=== PATIENT | female | born 1950 | race Caucasian/White ===

== ENCOUNTER 2017-02-13 04:12 | Inpatient (IN) | payer OTHER, BC ==
[~2017-02-13] VITALS: Ht 167.6 cm; Wt 91.2 kg
[2017-02-13] VITALS (8 sets, daily range): BP systolic 95–145; BP diastolic 56–84
--- NOTE | ~2017-02-13 | HC ---
[facility] [place] [address] CONSULTATION Name: EBONY GAMBOA Room #: 460-P [facility] IN ..#: [id number] Admission: 02/13/17 Attend Phys: Shanna Dozier MD Discharge: 02/16/17 Date of : 48 Report #: [id number] THIS REPORT FOR: //name// CC: Shanna Gaviria REASON FOR CONSULTATION: Exacerbation of COPD. IMPRESSION: 1. Exacerbation of chronic obstructive pulmonary disease. 2. Hypercapnic respiratory failure. 3. Cardiomyopathy. 4. Hypertension. 5. Leukocytosis. 6. Lactic acidosis. 7. Hyperglycemia. 8. History of tobacco use. 9. Metabolic acidosis, feeling better this evening. We will follow closely with you. PLAN: Agree with current therapy. We will do a CT PE protocol. We will do a BiPAP at night. Agree with corticosteroids and will place on Ceftin, Mucinex, CT PE protocol. We may ask cardiology also to evaluate. HISTORY: A very pleasant 66-year-old female who was on her home O2; however, last night developed increasing shortness of breath. No definite chest pain, does not recall being brought in. No sputum production. No fever, chills or night sweats. She has been off of prednisone since about December. No fever, chills, diarrhea. Positive vomiting in emergency room. HOME MEDICATIONS: Include aspirin, Coreg, Lasix, atorvastatin, lisinopril, Spiriva, Brovana, budesonide. PAST SURGICAL HISTORY: Include toenail removal and tubal ligation. ALLERGIES: None known. FAMILY HISTORY: Rheumatic fever, stomach cancer, PA. SOCIAL HISTORY: Positive tobacco, quit in June 2016. Negative ETOH. REVIEW OF SYSTEMS: Positive for hypertension, COPD, right common carotid stenosis. No fever, chills or night sweats. No nausea or vomiting. No hemoptysis, hematemesis or hematuria. No chest pain, no blurred vision. PHYSICAL EXAMINATION: VITAL SIGNS: Temperature 97.9, pulse 93, respirations 15 and BP 141/79. [facility] [address] [place] [address] CONSULTATION Name: EBONY GAMBOA Karol Room #: 460-[facility] IN ..#: [id number] Admission: 02/13/17 Attend Phys: Shanna Dozier MD Discharge: 02/16/17 Date of : 48 Report #: [id number] EYES: Negative icterus. NECK: Negative JVD. LUNGS: Showed wheeze bilateral. HEART: Regular. ABDOMEN: Bowel sounds present. EXTREMITIES: Showed no calf tenderness. LABORATORY DATA: Chest x-ray, no acute. Troponin less than 0.04. BUN 12, creatinine 1.2. GFR 45, pH 7.27, pCO2 of 39, pO2 is 77, bicarbonate 17.5, lactate 55. White count 13, hemoglobin 14.4, platelets 277. <ELECTRONICALLY SIGNED> By: Isabella Ayala MD 02/18/17 0535 31 14 Isabella Ayala MD /maryann
--- NOTE | ~2017-02-13 | EKG ---
[address] [employer] [place] [address] ELECTROCARDIOGRAM REPORT Name: EBONY GAMBOA Room #: 460-P ADM IN M.R.#: [id number] Admission: 02/13/17 Attend Phys: Shanna Dozier MD Discharge: Date of : 48 Report #: [id number] THIS REPORT FOR: //name// [facility] ED Test Date: 2017-02-13 Test Time: 04:19:03 Pat Name: EBONY GAMBOA Department: Room: 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 Cutting Supervisor: OUMAR : 1950 Requested By: Katie Cardona Order Number: [id number] MD: Lauri Webber Measurements Intervals [place] Rate: 120 P: 77 HI: 142 QRS: 30 QRSD: 94 T: QT: 313 QTc: 443 Interpretive Statements Sinus tachycardia Low voltage, precordial leads Borderline T abnormalities, lateral leads Compared to ECG 05/22/2007 21:49:19 Low QRS voltage now present T-wave abnormality now present Electronically Signed On 02-13-2017 7:59:56 CDT by Lauri Webber [email or web address] <ELECTRONICALLY SIGNED> By: Lauri Webber MD, [facility] 02/13/17 0759 0419 0419 Lauri Webber MD, [facility] /EPI
--- NOTE | ~2017-02-13 | EKG ---
[place] [address] [facility] [place] [address] ELECTROCARDIOGRAM REPORT Name: EBONY GAMBOA Room #: 460-P ADM IN M.R.#: [id number] Admission: 02/13/17 Attend Phys: Shanna Dozier MD Discharge: Date of : 48 Report #: [id number] THIS REPORT FOR: //name// [facility] Test Date: 2017-02-14 Test Time: 09:54:09 Pat Name: EBONY GAMBOA Department: Room: 460 Gender: F Manager Critical Care Unit: Armando GABRIEL : 1950 Requested By: Isabella Ayala Order Number: [id number] MD: Lauri Webber Measurements Intervals [place] Rate: 78 P: 74 [place]: 144 QRS: 50 QRSD: 105 T: 228 QT: 450 QTc: 513 Interpretive Statements Sinus rhythm Repol abnrm, global ischemia, diffuse leads Prolonged QT interval Compared to ECG 02/13/2017 04:19:03 ST and T-wave abnormality is now present QT interval has lengthened Electronically Signed On 02-15-2017 11:24:36 CDT by Lauri Webber [email or web address] <ELECTRONICALLY SIGNED> By: Lauri Webber MD, FACC 02/15/17 1124 0954 0954 Lauri Webber MD, [facility] /EPI
[~2017-02-13 04:12] MED LIST: ALBUTEROL2.5 MG/0.5 INH; AMLODIPINE BESY10 MG PO; ASPIR 8181 MG PO; BROVANA15 MCG/2 M INH; CARVEDILOL3.125 MG PO; FLEXERIL PO; LASIX 40 MG TAB40 M1 PO; LIPITOR 20 MG T20 M1 PO; LISINOPRIL10 MG PO; MUCINEX TA600 MG/TA2 PO; NORCO 5-325 TA1 EACH PO; NYSTATIN 1100000 U/M SW&SWALLOW; PREDNISONE 20 M20 MG PO; PULMICORT0.5 MG/22 INH; SPIRIVA INH; SYMBICORT160 MCG/4. INH; ZOCOR 10 MG TAB10 MG PO
[2017-02-13 04:26] LABS: ABSOLUTE NEUTROPHILS 6.3 thou/uL (1.4-8.2); BASOPHILS 1.1 % (0.0-2.0); EOSINOPHILS 2.6 % (0.0-3.0); HEMOGLOBIN 14.4 gm/dL (12.0-15.0); LYMPHOCYTES 41.7 % (24.0-44.0); MCHC 32.7 g/dL (28.0-37.0); MCV 97.9 fL (80.0-100.0); MONOCYTES 6.1 % (1.0-8.0); PLATELET COUNT 277 thou/uL (150-400); POLYS 48.5 % (36.0-66.0); RBC 4.49 mil/uL (4.20-5.00); RDW 14.3 % (10.5-14.5)
[2017-02-13 04:31] LABS: CALCIUM 8.5 mg/dL (8.5-10.1); CREATININE 1.2 mg/dL (0.6-1.0); POTASSIUM 4.7 mmol/L (3.5-5.1)
[2017-02-13 04:39] LABS: MANUAL DIFF NO
[2017-02-13 04:49] LABS: ABG SAMPLE TYPE ARTERIAL; BE(vivo) -8.8 mmol/L (-2 to +3); HCO3 17.5 mmol/L (22.0-26.0); O2(CT) 18.8 mL/dL (15.0-23.0); O2Hb 89.5 % (92.0-98.0); PCO2 38.8 mmHg (35.0-45.0); PO2 77.1 mmHg (80.0-100.0); sO2 93.8 % (92.0-98.0); tCO2 18.6 mmol/L (24.0-30.0)
[2017-02-13 04:50] LABS: STICK SITE L.RADIAL; pH 7.271 (7.360-7.450)
[2017-02-14 06:00] LABS: HEMATOCRIT 41.3 % (37.0-47.0); HEMOGLOBIN 13.8 gm/dL (12.0-15.0); MCH 31.7 pg (26.0-34.0); MCHC 33.3 g/dL (28.0-37.0); MCV 95.3 fL (80.0-100.0); RBC 4.34 mil/uL (4.20-5.00); RDW 14.2 % (10.5-14.5); WBC 16.2 thou/uL (4.0-11.0)
[2017-02-14 06:01] VITALS: BP 142/83
[2017-02-14 06:11] LABS: ALBUMIN 3.3 g/dL (3.4-5.0); CREATININE 0.7 mg/dL (0.6-1.0); POTASSIUM 4.6 mmol/L (3.5-5.1); TOTAL BILIRUBIN 0.3 mg/dL (<0.1-1.0); TOTAL PROTEIN 7.2 g/dL (6.4-8.2)
[2017-02-14 07:55] VITALS: BP 116/65
[2017-02-14 11:27] VITALS: BP 139/69
[2017-02-14 15:51] VITALS: BP 142/74
[2017-02-14 19:51] VITALS: BP 151/84
[2017-02-15 03:33] VITALS: BP 125/62
[2017-02-15 05:05] LABS: HEMATOCRIT 40.1 % (37.0-47.0); HEMOGLOBIN 13.4 gm/dL (12.0-15.0); MCH 31.8 pg (26.0-34.0); MCHC 33.3 g/dL (28.0-37.0); MCV 95.3 fL (80.0-100.0); RBC 4.21 mil/uL (4.20-5.00); RDW 14.1 % (10.5-14.5); WBC 13.6 thou/uL (4.0-11.0)
[2017-02-15 05:27] LABS: CREATININE 0.7 mg/dL (0.6-1.0); POTASSIUM 4.4 mmol/L (3.5-5.1)
[2017-02-15 08:01] VITALS: BP 121/68
[2017-02-15 08:19] LABS: ABG SAMPLE TYPE ARTERIAL; BE(vivo) 4.4 mmol/L (-2 to +3); HCO3 29.5 mmol/L (22.0-26.0); LACTATE 1.62 mmol/L (0.5-2.0); O2(CT) 19.9 mL/dL (15.0-23.0); O2Hb 94.4 % (92.0-98.0); PCO2 45.7 mmHg (35.0-45.0); PO2 76.7 mmHg (80.0-100.0); STICK SITE L.BRACHIAL; pH 7.428 (7.360-7.450); sO2 95.6 % (92.0-98.0); tCO2 30.9 mmol/L (24.0-30.0)
[2017-02-15 12:31] VITALS: BP 159/87
[2017-02-15 17:28] VITALS: BP 133/64
[2017-02-15 20:42] VITALS: BP 147/75
[2017-02-16 05:20] VITALS: BP 147/57
[2017-02-16 07:47] VITALS: BP 125/72
[2017-02-16 11:19] VITALS: BP 110/70
[2017-02-16 13:56] VITALS: BP 110/70
== END 2017-02-16 14:47 | disposition home or self-care (01) | DRG 280 ==
LOC: ER 04:12 → 4W 05:11 → EROBS 05:11 → 4W 06:00
PROVIDERS: Emergency Medicine; Family Medicine; Internal Medicine Pulmonary Disease
PROC: 5A09357 Assistance with Respiratory Ventilation, Less than 24 Consecutive Hours, Continuous Positive Airway Pressure (ICD-10-PCS; principal; 2017-02-14)
DX: I21.4 Non-ST elevation (NSTEMI) myocardial infarction (principal); J96.21 Acute and chronic respiratory failure with hypoxia; N17.0 Acute kidney failure with tubular necrosis; J44.1 Chronic obstructive pulmonary disease with (acute) exacerbation; I42.0 Dilated cardiomyopathy; E87.2 Acidosis; I10 Essential (primary) hypertension; E78.5 Hyperlipidemia, unspecified; I25.10 Atherosclerotic heart disease of native coronary artery without angina pectoris; E78.00 Pure hypercholesterolemia, unspecified; F17.210 Nicotine dependence, cigarettes, uncomplicated; R73.9 Hyperglycemia, unspecified; Z98.51 Tubal ligation status; Z79.82 Long term (current) use of aspirin; Z79.899 Other long term (current) drug therapy; Z82.49 Family history of ischemic heart disease and other diseases of the circulatory system; Z80.0 Family history of malignant neoplasm of digestive organs; Z83.6 Family history of other diseases of the respiratory system; Z99.81 Dependence on supplemental oxygen
CPT/HCPCS: 10045

== ENCOUNTER 2017-03-09 10:00 | Emergency (ER) | payer OTHER, BC ==
[~2017-03-09] VITALS: Ht 167.6 cm; Wt 92.1 kg
--- NOTE | ~2017-03-09 | EKG ---
[place] [address] [facility] [place] [address] ELECTROCARDIOGRAM REPORT Name: EBONY GAMBOA Room #: [facility]#: [id number] Admission: 03/09/17 Attend Phys: Discharge: 03/09/17 Date of : 48 Report #: [id number] THIS REPORT FOR: //name// [facility] ED Test Date: 2017-03-09 Test Time: 10:25:56 Pat Name: EBONY GAMBOA Department: Room: Gender: F Gambreler Helper: Karol STEELE : 1950 Requested By: Morales Arthur Order Number: [id number] MD: Lauri Webber Measurements Intervals [place] Rate: 102 P: 67 ND: 148 QRS: -43 QRSD: 120 T: 115 QT: 389 QTc: 507 Interpretive Statements Sinus tachycardia Incomplete left bundle branch block Compared to ECG 02/14/2017 09:54:09 Left bundle-branch block now present Marked ST and T wave abnormality no longer present incomplete left bundle branch block now present Electronically Signed On 03-09-2017 16:03:53 CDT by Lauri Webber [email or web address] <ELECTRONICALLY SIGNED> By: Lauri Webber MD, [facility] 03/09/17 1603 1025 1025 Lauri Webber MD, [facility] /EPI
[2017-03-09 10:17] LABS: ABSOLUTE NEUTROPHILS 5.3 thou/uL (1.4-8.2); BASOPHILS 1.1 % (0.0-2.0); EOSINOPHILS 2.9 % (0.0-3.0); HEMATOCRIT 41.9 % (37.0-47.0); HEMOGLOBIN 13.8 gm/dL (12.0-15.0); LYMPHOCYTES 41.4 % (24.0-44.0); MCH 31.9 pg (26.0-34.0); MCHC 32.9 g/dL (28.0-37.0); MONOCYTES 4.2 % (1.0-8.0); PLATELET COUNT 224 thou/uL (150-400); POLYS 50.4 % (36.0-66.0); RBC 4.32 mil/uL (4.20-5.00); RDW 14.7 % (10.5-14.5); WBC 10.5 thou/uL (4.0-11.0)
[2017-03-09 10:19] LABS: MANUAL DIFF NO
[2017-03-09 10:30] LABS: ABG SAMPLE TYPE ARTERIAL; BE(vivo) -2.4 mmol/L (-2 to +3); LACTATE 1.85 mmol/L (0.5-2.0); O2Hb 93.4 % (92.0-98.0); PCO2 36.8 mmHg (35.0-45.0); PO2 94.1 mmHg (80.0-100.0); pH 7.394 (7.360-7.450); sO2 97.2 % (92.0-98.0); tCO2 23.1 mmol/L (24.0-30.0)
[2017-03-09 10:31] LABS: STICK SITE L.BRACHIAL
[2017-03-09 10:33] LABS: ANION GAP 10 mmol/L (7-16); BUN 16 mg/dL (7-18); CALCIUM 8.5 mg/dL (8.5-10.1); CHLORIDE 108 mmol/L (98-107); CO2 24 mmol/L (21-32); CREATININE 0.9 mg/dL (0.6-1.0); GLUCOSE 136 mg/dL (74-106); POTASSIUM 4.1 mmol/L (3.5-5.1); SODIUM 142 mmol/L (136-145)
[2017-03-09 10:46] LABS: NT-PRO BRAIN NAT PEPTIDE 158 pg/mL (<300); TROPONIN-I < 0.04 ng/mL (<0.04-0.07)
[2017-03-09] MEDS ORDERED: DOXYCYCLINE 10100 MG PO (11:25)
== END 2017-03-09 11:59 | disposition home or self-care (01) ==
LOC: ER 10:00
PROVIDERS: Nurse Practitioner
DX: J44.1 Chronic obstructive pulmonary disease with (acute) exacerbation (principal); I10 Essential (primary) hypertension; E78.00 Pure hypercholesterolemia, unspecified; F17.210 Nicotine dependence, cigarettes, uncomplicated

== ENCOUNTER 2017-03-10 09:08 | Inpatient (IN) | payer OTHER, BC ==
[~2017-03-10] VITALS: Ht 167.6 cm; Wt 93.0 kg
--- NOTE | ~2017-03-10 | EKG ---
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: MZOOK : 1950 Requested By: Morales Arthur Order Number: [id number] MD: Asad Pathak Measurements Intervals [place] Rate: 102 P: 77 VT: 152 QRS: 35 QRSD: 91 T: 123 QT: 363 QTc: 473 Interpretive Statements Sinus tachycardia Abnormal T, consider ischemia, lateral leads Compared to ECG 03/09/2017 10:25:56 T-wave abnormality now present Possible ischemia now present Left bundle-branch block no longer present Electronically Signed On 03-10-2017 17:59:32 CDT by Asad Pathak [email or web address] <ELECTRONICALLY SIGNED> By: Asad Pathak MD 03/10/17 1759 5 5 Asad Pathak MD /EPI
--- NOTE | ~2017-03-10 | HC ---
[facility] [place] [address] CONSULTATION Name: EBONY GAMBOA Room #: 211-P [facility] IN .R.#: [id number] Admission: 03/10/17 Attend Phys: Isreal Carvajal MD Discharge: Date of : 48 Report #: [id number] THIS REPORT FOR: //name// CC: Solo Carvajal PRIMARY CARE PHYSICIAN: Dr. Solo Gaviria. REFERRAL PHYSICIAN: Dr. Isreal Carvajal. REASON FOR REFERRAL: Dyspnea. HISTORY OF PRESENT ILLNESS: The patient is a 66-year-old white female with COPD, who presents once again to the Emergency Room with progressive dyspnea. A pulmonary consultation was requested. The patient has known COPD. She smoked more than 35 years, quit less than a year ago. She has been doing fairly well except about 7 years ago when she was exposed to mold and possible paint fumes when she was treated for exacerbation of COPD. Other than she has been doing fairly well until June of this year along with January and this current admission. She was just hospitalized past month. She went home and was doing fairly well until 2 days ago she started to develop increasing dyspnea. She had a minimally productive cough with clear sputum. She was in fact seen in the Emergency Room yesterday. She was evaluated and given doxycycline along with prednisone. She returns today with worsening dyspnea. Otherwise, denies any recent febrile illness, chest pain, productive cough, nausea, vomiting. She does not know if there is now mold again in the house. She denies any recent flooding, which occurred 7 years ago. She denies any recent changes in home or lifestyle changes. She denies any recent acquisition. Chest x-ray on admission revealed clear lung posey, it is hyperexpanded. Troponin is mildly elevated with T-wave abnormalities on this admission. PAST MEDICAL HISTORY: Remarkable for COPD, long history of tobacco use of more than 35 years, quit about a year ago. Hypertension, hyperlipidemia, cardiomyopathy, ejection fraction approximately 40-45%. Echocardiogram performed earlier today showed mild mitral regurgitation, pulmonary artery pressure was not able to be mentioned. Systolic function is reduced. Cause of this cardiomyopathy is yet to be defined. [facility] [address] [place] [address] CONSULTATION Name: EBONY GAMBOA Room #: 211-P [facility] IN ..#: [id number] Admission: 03/10/17 Attend Phys: Isreal Carvajal MD Discharge: Date of : 48 Report #: [id number] ALLERGIES: None noted. HOME MEDICATIONS: Include aspirin, Pulmicort nebulized 0.5 mg b.i.d., DuoNeb p.r.n., Spiriva 1 capsule once a day, Lasix, Zestril, Coreg, Lipitor and recent pulse prednisone therapy along with doxycycline. FAMILY HISTORY: Notable for father due to motor vehicle accident. Mother at the age of 51 with rheumatic fever. One brother with COPD. SOCIAL HISTORY: She is . Tobacco history as mentioned above. She drinks socially. REVIEW OF SYSTEMS: As mentioned above, otherwise 10-point system review negative. PHYSICAL EXAMINATION: GENERAL: She is awake, alert, who appears to be mildly distressed with mild dyspnea. VITAL SIGNS: Temperature is 98.4 degrees Fahrenheit, pulse is 83, respiratory rate is 15, blood pressure is 127/62 mmHg, saturation 95%. HEENT: Normocephalic, atraumatic. NECK: Supple, without any lymphadenopathy or thyromegaly. CHEST: Breath sounds are decreased bilaterally with mild expiratory wheezes. CARDIOVASCULAR: Normal S1, S2. No murmurs or gallop. There is no JVD. There is no carotid bruit. Pulses are 2+/4+ bilaterally. ABDOMEN: Soft, nontender, no organomegaly or masses felt. GENITOURINARY: Deferred. RECTAL: Deferred. EXTREMITIES: There is no edema, cyanosis or clubbing. LABORATORY DATA: Chest x-ray as mentioned above. Troponin 0.16. Arterial blood gas revealed pH 7.40, pCO2 of 37, pO2 79 on 3 liters of O2. WBC is 20,600, hemoglobin is 14.6 without bandemia. Eosinophil count is normal. Electrolytes are normal. IMPRESSION: 1. Acute hypoxemic respiratory failure in this 66-year-old white female. Etiology is secondary to exacerbation of chronic obstructive pulmonary disease. We will need to consider possible early onset lower respiratory tract infection. 2. Chronic obstructive pulmonary, exacerbation, severity unknown. She had been doing fairly well until this past June in the last couple of months. Cause of this is unclear, but may need to consider environmental exposure and other external triggers. 3. Tobacco abuse having quit smoking about a year ago. [address] [address] CONSULTATION Name: EBONY GAMBOA Room #: 211-P [facility] IN M.R.#: [id number] Admission: 03/10/17 Attend Phys: Isreal Carvajal MD Discharge: Date of : 48 Report #: [id number] 4. Abnormal EKG, mildly elevated troponin. We will need to consider acute coronary syndrome. Cardiology has been consulted. RECOMMENDATION: We will continue corticosteroids, bronchodilators along with broad spectrum antibiotics. Await cardiology evaluation. DVT and GI prophylaxis will be recommended. Long discussion with the patient and her regarding above findings. Would also recommend home evaluation for possible recurrent mold or other environmental allergens. Thank you for this consultation. <ELECTRONICALLY SIGNED> By: Tommy Gudino MD 03/11/17 1132 1253 1906 Tommy Gudino MD /nt
[2017-03-10 09:08] VITALS: BP 182/139
[~2017-03-10 09:08] MED LIST changes: +DOXYCYCLINE 10100 MG PO
[2017-03-10 09:25] LABS: HEMATOCRIT 43.9 % (37.0-47.0); HEMOGLOBIN 14.6 gm/dL (12.0-15.0); MCH 32.1 pg (26.0-34.0); MCHC 33.3 g/dL (28.0-37.0); MCV 96.4 fL (80.0-100.0); PLATELET COUNT 258 thou/uL (150-400); RBC 4.56 mil/uL (4.20-5.00); RDW 14.9 % (10.5-14.5); WBC 20.6 thou/uL (4.0-11.0)
[2017-03-10 09:31] LABS: MANUAL DIFF YES
[2017-03-10 09:34] LABS: CALCIUM 9.9 mg/dL (8.5-10.1); CREATININE 0.8 mg/dL (0.6-1.0); POTASSIUM 4.6 mmol/L (3.5-5.1)
[2017-03-10 09:47] LABS: TROPONIN-I 0.16 ng/mL (<0.04-0.07)
[2017-03-10 09:51] LABS: ABG SAMPLE TYPE ARTERIAL; BE(vivo) -1.3 mmol/L (-2 to +3); HCO3 22.9 mmol/L (22.0-26.0); O2(CT) 19.5 mL/dL (15.0-23.0); PO2 79.3 mmHg (80.0-100.0); pH 7.409 (7.360-7.450); sO2 95.9 % (92.0-98.0)
[2017-03-10 09:52] LABS: STICK SITE L.RADIAL
[2017-03-10 10:05] LABS: ABSOLUTE NEUTROPHILS 19.2 thou/uL (1.4-8.2); TOTAL CELL COUNT 100
[2017-03-10 10:06] LABS: ANISOCYTOSIS 1+
[2017-03-10 11:12] VITALS: BP 127/65
[2017-03-10 11:55] VITALS: BP 124/68
[2017-03-10 17:10] VITALS: BP 1126/66; BP 126/66
[2017-03-10 19:46] VITALS: BP 152/75
[2017-03-11] VITALS (7 sets, daily range): BP systolic 125–186; BP diastolic 65–102
[2017-03-11 01:25] LABS: HEMATOCRIT 41.4 % (37.0-47.0); HEMOGLOBIN 13.6 gm/dL (12.0-15.0); MCHC 32.8 g/dL (28.0-37.0); MCV 97.6 fL (80.0-100.0); RBC 4.24 mil/uL (4.20-5.00); RDW 14.8 % (10.5-14.5); WBC 17.3 thou/uL (4.0-11.0)
[2017-03-11 01:34] LABS: CALCIUM 9.1 mg/dL (8.5-10.1); CREATININE 0.9 mg/dL (0.6-1.0)
[2017-03-12 03:13] VITALS: BP 144/90
[2017-03-12 03:55] LABS: HEMATOCRIT 41.7 % (37.0-47.0); HEMOGLOBIN 13.6 gm/dL (12.0-15.0); MCH 31.7 pg (26.0-34.0); MCHC 32.6 g/dL (28.0-37.0); MCV 97.3 fL (80.0-100.0); PLATELET COUNT 226 thou/uL (150-400); RBC 4.29 mil/uL (4.20-5.00); RDW 14.8 % (10.5-14.5); WBC 14.6 thou/uL (4.0-11.0)
[2017-03-12 03:56] LABS: MANUAL DIFF YES
[2017-03-12 04:05] LABS: CALCIUM 9.3 mg/dL (8.5-10.1); POTASSIUM 3.9 mmol/L (3.5-5.1)
[2017-03-12 04:58] LABS: ABSOLUTE NEUTROPHILS 13.1 thou/uL (1.4-8.2); METAMYELOCYTES 1 %; TOTAL CELL COUNT 100
[2017-03-12 07:50] VITALS: BP 148/87
[2017-03-12 12:20] VITALS: BP 112/61
[2017-03-12 15:10] LABS: SACCHAROMYCES IGA < 20.0 Units (0.0-24.9); SACCHAROMYCES IGG < 20.0 Units (0.0-24.9)
[2017-03-12 16:30] VITALS: BP 112/64
[2017-03-12 20:38] VITALS: BP 122/62
[2017-03-13 03:21] VITALS: BP 141/81
[2017-03-13 04:30] VITALS: BP 136/94
[2017-03-13 07:11] LABS: HEMATOCRIT 42.3 % (37.0-47.0); MCH 31.7 pg (26.0-34.0); MCV 96.2 fL (80.0-100.0); PLATELET COUNT 204 thou/uL (150-400); RDW 14.7 % (10.5-14.5); WBC 11.5 thou/uL (4.0-11.0)
[2017-03-13 07:18] VITALS: BP 143/84
[2017-03-13 07:20] LABS: MANUAL DIFF YES
[2017-03-13 07:26] LABS: CALCIUM 9.3 mg/dL (8.5-10.1); CREATININE 0.9 mg/dL (0.6-1.0); POTASSIUM 3.8 mmol/L (3.5-5.1)
[2017-03-13 08:12] LABS: ABSOLUTE NEUTROPHILS 10.5 thou/uL (1.4-8.2); ANISOCYTOSIS SLIGHT; TOTAL CELL COUNT 100
[2017-03-13 11:26] VITALS: BP 121/64
[2017-03-13 16:08] VITALS: BP 135/69
[2017-03-13 20:47] VITALS: BP 135/71
[2017-03-14 04:05] VITALS: BP 147/62
[2017-03-14 05:06] LABS: HEMATOCRIT 42.1 % (37.0-47.0); HEMOGLOBIN 14.3 gm/dL (12.0-15.0); MCH 32.3 pg (26.0-34.0); MCHC 33.9 g/dL (28.0-37.0); MCV 95.3 fL (80.0-100.0); RBC 4.42 mil/uL (4.20-5.00); RDW 14.4 % (10.5-14.5); WBC 9.8 thou/uL (4.0-11.0)
[2017-03-14 05:18] LABS: CALCIUM 9.2 mg/dL (8.5-10.1); CREATININE 0.9 mg/dL (0.6-1.0); POTASSIUM 3.7 mmol/L (3.5-5.1)
[2017-03-14 07:30] LABS: ABG SAMPLE TYPE ARTERIAL; BE(vivo) 5.3 mmol/L (-2 to +3); HCO3 29.8 mmol/L (22.0-26.0); LACTATE 1.15 mmol/L (0.5-2.0); O2(CT) 19.4 mL/dL (15.0-23.0); O2Hb 97.1 % (92.0-98.0); PCO2 43.2 mmHg (35.0-45.0); PO2 106.2 mmHg (80.0-100.0); STICK SITE L.BRACHIAL; pH 7.457 (7.360-7.450); sO2 98.1 % (92.0-98.0); tCO2 31.2 mmol/L (24.0-30.0)
[2017-03-14 08:00] VITALS: BP 146/89
[2017-03-14] MEDS ORDERED: AUGMENTIN 500-1 EACH PO (11:36)
[2017-03-14] MEDS ORDERED: DUONEB 2.5-0.5 M3 ML INH (11:37)
[2017-03-14] MEDS ORDERED: TORSEMIDE20 MG PO (11:38)
[2017-03-14] MEDS ORDERED: PROTONIX40 M2 PO (11:39)
[2017-03-14 12:59] VITALS: BP 146/89
[2017-03-14 15:45] VITALS: BP 146/89
== END 2017-03-14 13:53 | disposition home or self-care (01) | DRG 871 ==
LOC: ER 09:08 → EROBS 10:18 → 2N 10:18
PROVIDERS: Hospitalist; Internal Medicine Endocrinology, Diabetes & Metabolism; Internal Medicine Pulmonary Disease; Nurse Practitioner
PROC: 5A09357 Assistance with Respiratory Ventilation, Less than 24 Consecutive Hours, Continuous Positive Airway Pressure (ICD-10-PCS; principal; 2017-03-11)
DX: A41.9 Sepsis, unspecified organism (principal); J15.6 Pneumonia due to other Gram-negative bacteria; J96.21 Acute and chronic respiratory failure with hypoxia; J44.1 Chronic obstructive pulmonary disease with (acute) exacerbation; J44.0 Chronic obstructive pulmonary disease with (acute) lower respiratory infection; I42.0 Dilated cardiomyopathy; I10 Essential (primary) hypertension; E78.00 Pure hypercholesterolemia, unspecified; E78.5 Hyperlipidemia, unspecified; I25.10 Atherosclerotic heart disease of native coronary artery without angina pectoris; F41.9 Anxiety disorder, unspecified; R00.0 Tachycardia, unspecified; J22 Unspecified acute lower respiratory infection; Z87.891 Personal history of nicotine dependence; Z82.5 Family history of asthma and other chronic lower respiratory diseases; Z79.82 Long term (current) use of aspirin; Z79.899 Other long term (current) drug therapy; Z82.49 Family history of ischemic heart disease and other diseases of the circulatory system
CPT/HCPCS: 10081

== ENCOUNTER → 2017-04-23 | Outpatient (CLI) | payer OTHER, BC ==
[~2017-04-23] MED LIST changes: +AUGMENTIN 500-1 EACH PO; +DUONEB 2.5-0.5 M3 ML INH; +PROTONIX40 M2 PO; +TORSEMIDE20 MG PO
== END ==
LOC: SLEEPLAB 15:39
DX: G47.33 Obstructive sleep apnea (adult) (pediatric) (principal)

== ENCOUNTER → 2017-04-29 | Outpatient (CLI) | payer OTHER, BC | LOC: ULTRA 07:29 | DX: I82.622 Acute embolism and thrombosis of deep veins of left upper extremity (principal); M79.89 Other specified soft tissue disorders ==

== ENCOUNTER → 2017-05-07 | Outpatient (CLI) | payer OTHER, BC ==
[2017-05-07 09:30] LABS: CREATININE 0.7 mg/dL (0.6-1.0)
== END ==
LOC: CAT 08:57
PROVIDERS: Internal Medicine Pulmonary Disease
DX: J44.9 Chronic obstructive pulmonary disease, unspecified (principal); I82.A12 Acute embolism and thrombosis of left axillary vein

== ENCOUNTER 2017-08-17 07:43 | Emergency (ER) | payer OTHER, BC ==
[~2017-08-17] VITALS: Ht 170.2 cm; Wt 136.1 kg
--- NOTE | ~2017-08-17 | EKG ---
[facility] [employer] [place] [address] ELECTROCARDIOGRAM REPORT Name: EBONY GAMBOA [id number] Admission: 08/17/17 Attend Phys: Discharge: Date of : 48 Report #: [id number] THIS REPORT FOR: //name// [facility] ED Test Date: 2017-08-17 Test Time: 09:14:02 Pat Name: EBONY GAMBOA Department: Room: Gender: F Records And Information Manager: : 1950 Requested By: Leslie Arriola Order Number: [id number] MD: Lauri Webber Measurements Intervals [place] Rate: 110 P: 80 [place]: 143 QRS: 6 QRSD: 82 T: 179 QT: 333 QTc: 451 Interpretive Statements Sinus tachycardia Borderline low voltage, extremity leads Nonspecific T abnormalities, lateral leads Compared to ECG 03/10/2017 09:26:43 No significant change was found Electronically Signed On 08-17-2017 10:05:56 PRODUCT DIRECTOR by Lauri Webber [email or web address] <ELECTRONICALLY SIGNED> By: Lauri Webber MD, [facility] 08/17/17 1005 0914 3 Lauri Webber MD, FACC /EPI
[2017-08-17 08:35] LABS: ABG SAMPLE TYPE ARTERIAL; BE(vivo) -2.6 mmol/L (-2 to +3); HCO3 22.4 mmol/L (22.0-26.0); LACTATE 3.03 mmol/L (0.5-2.0); O2(CT) 17.5 mL/dL (15.0-23.0); O2Hb 85.9 % (92.0-98.0); PCO2 39.4 mmHg (35.0-45.0); PO2 58.7 mmHg (80.0-100.0); pH 7.372 (7.360-7.450); sO2 89.9 % (92.0-98.0); tCO2 23.6 mmol/L (24.0-30.0)
[2017-08-17 08:36] LABS: STICK SITE L.BRACHIAL
[2017-08-17 09:09] LABS: CALCIUM 9.2 mg/dL (8.5-10.1); CREATININE 0.8 mg/dL (0.6-1.0); POTASSIUM 4.1 mmol/L (3.5-5.1)
[2017-08-17 09:16] LABS: HEMATOCRIT 42.8 % (37.0-47.0); HEMOGLOBIN 13.9 gm/dL (12.0-15.0); MCH 31.9 pg (26.0-34.0); MCHC 32.4 g/dL (28.0-37.0); MCV 98.3 fL (80.0-100.0); PLATELET COUNT 264 thou/uL (150-400); RBC 4.35 mil/uL (4.20-5.00); RDW 14.9 % (10.5-14.5); WBC 15.6 thou/uL (4.0-11.0)
[2017-08-17 09:20] LABS: MANUAL DIFF YES
[2017-08-17 10:00] LABS: ABSOLUTE NEUTROPHILS 12.8 thou/uL (1.4-8.2); TOTAL CELL COUNT 100
[2017-08-17 10:01] LABS: ANISOCYTOSIS SLIGHT
== END 2017-08-17 10:10 | disposition home or self-care (01) ==
LOC: ER 07:43
PROVIDERS: Emergency Medicine
DX: J44.1 Chronic obstructive pulmonary disease with (acute) exacerbation (principal); D72.829 Elevated white blood cell count, unspecified; R06.03 Acute respiratory distress; F17.210 Nicotine dependence, cigarettes, uncomplicated; I10 Essential (primary) hypertension; E78.00 Pure hypercholesterolemia, unspecified; I42.9 Cardiomyopathy, unspecified

== ENCOUNTER 2018-01-04 16:08 | Inpatient (IN) | payer OTHER, BC ==
[~2018-01-04] VITALS: Ht 167.6 cm; Wt 105.9 kg
[2018-01-04] VITALS (19 sets, daily range): BP systolic 82–134; BP diastolic 48–85
--- NOTE | ~2018-01-04 | H ---
[facility] [place] [address] HISTORY AND PHYSICAL Name: EBONY GAMBOA Room #: 244-P [facility] IN M.R.#: [id number] Admission: 01/04/18 Attend Phys: Frida Vega MD Discharge: Date of : 48 Report #: [id number] THIS REPORT FOR: //name// CC: Frida Fuentesparesh DATE OF SERVICE: 01/04/2018 CHIEF COMPLAINT: Cardiorespiratory arrest. HISTORY OF PRESENT ILLNESS: Obtained by talking to ER doctor and talking to the patient's . The patient cannot provide history by herself. According to , the patient was in usual state of health today and then sometime in the midday, she started screaming for help and she was saying to give me oxygen, she was saying that she has difficulty breathing. As went to the room, she was slumped over. He started CPR and called 911, 911 came intubated the patient. The patient was brought to the Emergency Department. She was not responsive. The patient has a history of COPD. Unfortunately, she continues to smoke. Recently, she was taking off prednisone. The patient's stated that the patient is very sensitive to weather change. The patient has been stated that there was no any recent illness. She did not complain of any chest pain. REVIEW OF SYSTEMS: Otherwise not able to obtain from the patient, she is unresponsive and intubated. In the Emergency Department, an EKG was done and was unremarkable. The patient got Solu-Medrol, got breathing treatment, also Zosyn and erythromycin. CT of the chest was done, did not show pulmonary emboli. Showed bibasilar infiltrate versus atelectasis. PAST MEDICAL HISTORY: History of severe COPD, unfortunately, she continues to smoke. The patient has a history of high cholesterol, history of fluid retention and hypertension. MEDICATIONS: At home, Lipitor 40 mg daily, lisinopril 20, Coreg 3.125 mg twice a day, torsemide 40 mg daily, aspirin 81 mg daily with budesonide 6.5 mg twice a day, albuterol 2.5 mg 3 times a day. There is also listed Eliquis, but is close out. I asked the patient's if she was taking Eliquis, but he could not recall it. FAMILY HISTORY: Noncontributory. ALLERGIES: No known drug allergy. REVIEW OF SYSTEMS: As stated above, not able to obtain from the patient. PHYSICAL EXAMINATION: [facility] [address] [place] [address] HISTORY AND PHYSICAL Name: EBONY GAMBOA Room #: [facility]#: [id number] Admission: 01/04/18 Attend Phys: Frida Vega MD Discharge: Date of : 48 Report #: [id number] GENERAL: The patient intubated. She is not responsive to voice or deep stimuli. VITAL SIGNS: Her temperature 95.5, pulse 109, sinus tachycardia, blood pressure 90/60 dropped to 80. Respiration she is intubated, oxygen saturation 99%, she is on a vent. HEENT: Normocephalic. Pupils are not reactive to light. NECK: Without bruits. LUNGS: Showed diminished breath sounds. CARDIAC: S1, S2 normal. Rhythm is regular. ABDOMEN: Soft. I could not hear bowel sounds. The patient has lots of stool output and it is of foul smelling. EXTREMITIES: Showed no edema. NEUROLOGIC: She is completely unresponsive, not following any commands. Her extremities are flaccid. LABORATORY AND DIAGNOSTIC DATA: ABG done in the ER showed pH 7.044, pCO2 of 62.6, pO2 of 341. She is on vent with tidal volume 500, PEEP of 5. Her PT 10.7, INR 1.7, magnesium 2.7, fibrinogen 300, CK-MB 3.4, proBNP 242. WBC 17.4, hemoglobin 13.5, platelets 219. Sodium 141, potassium was 5.5 in ER, carbon dioxide 19, BUN 13, creatinine 1.4, glucose was 240, AST 115, ALT 118. Troponin less than 0.04. Albumin 2.9. CT with PE protocol did not show pulmonary emboli. EKG showed sinus rhythm, right atrial enlargement, nonspecific intraventricular conduction delay. No acute ST-T wave changes. IMPRESSION AND PLAN: Cardiorespiratory arrest, questionable etiology. Possibly the patient became hypoxic due to severe chronic obstructive pulmonary disease, developed arrhythmia and collapse. The patient intubated. She is in ICU. We will start the patient on IV Solu-Medrol, breathing treatment. Also, pneumonia is not excluded. She has elevated white blood cell count. We will put her on Zosyn. A cardiac event needs to be ruled out. First troponin was negative, but we will get serial cardiac enzymes. The patient's potassium is mildly elevated. I doubt that that led to the arrhythmia. The patient's rhythm is sinus. We will check stat BMP. Not to say that the patient has a lot of foul smelling stool, it could be that she has necrotic bowel. The patient's blood pressure on lower side, but we will put her on pressors and IV fluids. Liver enzymes elevated, likely due to shock liver. The patient's care was discussed with . Overall, prognosis is extremely poor. Stat consult was placed for pulmonary critical care, Dr. Ornelas. By: 09 2045 Frida Vega MD /maryann
--- NOTE | ~2018-01-04 | 2DMMODE ---
[facility] [address] [place] [address] 2 D/M-MODE ECHOCARDIOGRAM Name: EBONY GAMBOA Karol Room #: 244-P [facility] IN ..#: [id number] Admission: 01/04/18 Attend Phys: Frida Vega MD Discharge: Date of : 48 Date of Service: 01/05/18 0950 Report #: [id number] THIS REPORT FOR: //name// APPROVED REPORT Study performed: 01/05/2018 08:43:33 EXAM: Comprehensive 2D, Doppler, and color-flow Echocardiogram Patient Location: ICU Room #: [facility] Status: routine BSA: 2.20 HR: 80 bpm BP: 93/40 mmHg Other Information Study Quality: Adequate Indications COPD Dyspnea Respiratory failure 2D Dimensions RVDd: 36.71 mm LVEF(%): 49.00 (>50%) IVSd: 9.64 (7-11mm) LVOT Diam: 22.47 (18-24mm) LVDd: 46.66 mm PWd: 10.12 (7-11mm) Ascending Ao: 26.38 (22-36mm) LVDs: 35.13 (25-40mm) Aortic Root: 25.15 mm IVC: 15.00 mm [place]'s LVEF: 49.00 % Volumes Left Atrial Volume (Systole) Single Plane 4CH: 46.78 mL Single Plane 2CH: 31.19 mL LA ESV Index: 21.00 mL/m2 Aortic Valve AoV Peak Steve.: 1.34 m/s AO Peak Gr.: 7.18 mmHg LVOT Max P.13 mmHg LVOT Max V: 0.88 m/s BERTHA Vmax: 2.62 cm2 Mitral Valve E/A Ratio: 0.8 [facility] [address] [place] [address] 2 D/M-MODE ECHOCARDIOGRAM Name: COOPEREBONY L Room #: [facility]#: [id number] Admission: 01/04/18 Attend Phys: Frida Vega MD Discharge: Date of : 48 Date of Service: 01/05/18 0950 Report #: [id number] MV Decel. Time: 316.19 ms MV E Max Steve.: 0.56 m/s MV A Steve.: 0.67 m/s MV PHT: 91.69 ms IVRT: 226.07 ms Pulmonary Valve PV Peak Steve.: 0.80 m/s PV Peak Gr.: 2.55 mmHg Pulmonary Vein P Vein S: 0.38 m/s P Vein A: 0.31 m/s P Vein D: 0.35 m/s P Vein A Dur.: 115.3 msec P Vein S/D Ratio: 1.09 Tricuspid Valve TR Peak Steve.: 2.52 m/s TR Peak Gr.: 25.33 mmHg PA Pressure: 35.00 mmHg Left Ventricle The left ventricle is normal size. There is normal LV segmental wall motion. There is normal left ventricular wall thickness. Left ventricular systolic function is at the lower limits of normal LVEF is 50%. Grade I - abnormal relaxation pattern. Right Ventricle The right ventricle is normal size. The right ventricular systolic function is normal. Atria The left atrium size is normal. The right atrium size is normal. Aortic Valve The aortic valve is normal in structure. No aortic regurgitation is present. There is no aortic valvular stenosis. Mitral Valve The mitral valve is normal in structure. Trace mitral regurgitation. No evidence of mitral valve stenosis. Tricuspid Valve The tricuspid valve is normal in structure. There is trace to mild tricuspid regurgitation. Estimated PAP 35 mmHg. Pulmonic Valve [address] [address] 2 D/M-MODE ECHOCARDIOGRAM Name: EBONY GAMBOA Karol Room #: 244-P [facility] IN [facility]#: [id number] Admission: 01/04/18 Attend Phys: Frida Vega MD Discharge: Date of : 48 Date of Service: 01/05/18 0950 Report #: [id number] The pulmonary valve is normal in structure. There is no pulmonic valvular regurgitation. Great Vessels The aortic root is normal in size. IVC is normal in size and collapses <50% with inspiration. Pericardium There is no pericardial effusion. <Conclusion> Left ventricular systolic function is at the lower limits of normal There is normal LV segmental wall motion. LVEF is 50%. Grade I diastolic dysfunction The aortic valve is normal in structure. No aortic regurgitation or stenosis The mitral valve is normal in structure. Trace mitral regurgitation. There is trace to mild tricuspid regurgitation. Estimated pulmonary artery pressure of 35 mmHg. There is no pericardial effusion. <ELECTRONICALLY SIGNED> By: Lauri Webber MD, FACC 01/05/18949 9 9 Lauri Webber MD, FACC /INF
--- NOTE | ~2018-01-04 | EEG ---
[facility] [address] [place] [address] ELECTROENCEPHALOGRAM Name: EBONY GAMBOA Room #: 244-P [facility]..#: [id number] Admission: 01/04/18 Attend Phys: Frida Vega MD Discharge: 01/07/18 Date of : 48 Report #: [id number] THIS REPORT FOR: //name// CC: Frida Fuentesparesh DATE OF SERVICE: 01/06/2018 This patient's EEG was done without any sedation. EEG was done by placing the electrodes by standard 10/20 system of electrode placement. Both referential and sequential montages were used for recording. At 7 microvolt, there is no cortical activity noticed. At 5 microvolt, also there is no cortical activity noticed. At 3 and 2 microvolt, the patient's EEG becomes masked by a lot of artifact as usual, but again no well-defined cortical activity appeared to be present. IMPRESSION: This patient's EEG does not demonstrate any clearcut cortical activity at 7 microvolt and 5 microvolt, which are usual frequency. At 3 and 2 microvolt, there is a lot of artifact present and it is difficult to determine with certainty, but no cortical activity appeared to be present. Clinical correlation is recommended and this patient will undergo a brain evaluation tomorrow morning and if there is need for it, we will do blood flow studies depending upon clinical evaluation and our ability or not ability to do the apnea test. Thank you very much for this referral. <ELECTRONICALLY SIGNED> By: Oscar Mccall MD 01/13/18 1650 99 06 Oscar Mccall MD /nt
--- NOTE | ~2018-01-04 | EKG ---
[address] [address] ELECTROCARDIOGRAM REPORT Name: COOPEREBONY L Room #: 244-P ADM IN M.R.#: [id number] Admission: 01/04/18 Attend Phys: Frida Vega MD Discharge: Date of : 48 Report #: [id number] THIS REPORT FOR: //name// [facility] ED Test Date: 2018-01-04 Test Time: 16:15:29 Pat Name: EBONY GAMBOA Department: Room: [facility] Gender: F Facility Technician: [facility] : 1950 Requested By: Leslie Arriola Order Number: [id number] MD: Asad Pathak Measurements Intervals [place] Rate: 92 P: 76 [place]: 154 QRS: -12 QRSD: 115 T: 95 QT: 395 QTc: 489 Interpretive Statements Sinus rhythm Right atrial enlargement Nonspecific intraventricular conduction delay Nonspecific repol abnormality, diffuse leads Compared to ECG 08/17/2017 09:14:02 Atrial abnormality now present Intraventricular conduction delay now present Early repolarization now present Sinus tachycardia no longer present T-wave abnormality no longer present Electronically Signed On 01-05-2018 17:04:01 CDT by Asad Pathak [email or web address] <ELECTRONICALLY SIGNED> By: Asad Pathak MD 01/05/18 1704 1615 1615 Asad Pathak MD /EPI
--- NOTE | ~2018-01-04 | HC ---
[facility] [place] [address] [place] [address] CONSULTATION Name: EBONY GAMBOA Karol Room #: 244-P [facility] IN .R.#: [id number] Admission: 01/04/18 Attend Phys: Frida Vega MD Discharge: Date of : 48 Report #: [id number] THIS REPORT FOR: //name// CC: Frida Gaviria REASON FOR CONSULTATION: I was asked to evaluate concerning respiratory failure post out of hospital cardiopulmonary arrest with pneumonia and possible colitis. HISTORY OF PRESENT ILLNESS: The patient was a 67-year-old with underlying oxygen requiring COPD, on chronic steroids, who became acutely ischemia acutely short of breath yesterday, passed out at home and initiated CPR. Found to have pulseless electrical activity. Transported by EMS to the Emergency Department where she was intubated, placed on code ICE, given IV antibiotic therapy and vasopressors. She remains on Levophed and vasopressin. Moderate amount of tracheal secretions have been identified. No hemoptysis. Cardiac rhythm had been normal sinus. She had profuse diarrhea, but this is a new issue noted. Family states that she has tended to be constipated previously. No recent antibiotics except for a tooth infection over a month ago. No reported chest pain. No recent cardiac issues. No reported dysuria. No seizure disorder. No travel. ALLERGIES: None. MEDICATIONS: As noted on her MAR including Zosyn, metronidazole. PAST MEDICAL HISTORY: COPD, hypertension, hyperlipidemia, tobacco user, dilated cardiomyopathy. FAMILY HISTORY: Noncontributory. SOCIAL HISTORY: She is a smoker of cigarettes. No significant alcohol intake. Lives with her . PHYSICAL EXAMINATION: VITAL SIGNS: Hypothermic. Blood pressure , MAP of 94, Levophed drip, vasopressin drip. FiO2 30%, sedated. Pupils were 5 mm. Did not respond to light. NECK: Supple. Orally intubated. MOUTH: Otherwise, unremarkable. SKIN: Unremarkable. LYMPH: Unremarkable. Moderate obesity. LUNGS: Clear anteriorly and laterally. HEART: Regular without murmur. ABDOMEN: Soft, did not appear tender, no hepatosplenomegaly or mass. Rectal tube was in place. [facility] [address] [place] [address] CONSULTATION Name: EBONY GAMBOA Karol Room #: 244-P [facility] IN [facility].#: [id number] Admission: 01/04/18 Attend Phys: Frida Vega MD Discharge: Date of : 48 Report #: [id number] GENITOURINARY: External genitalia unremarkable with indwelling Lau catheter. EXTREMITIES: Unremarkable. LABORATORY DATA: Blood cultures are negative to date. CPK 34. Sodium 139, potassium 3.5, bicarbonate of 18, creatinine 1.6, hemoglobin 12.8, WBC 12.4, platelet count 175,000. Differential unremarkable with 95% neutrophils, 2.6% lymphocytes. Echocardiogram: EF 50%. Chest x-ray, left lower lobe infiltrate, atelectasis. Lactate 2.9. BNP 556. ABG last night on FiO2 of 50% showed a pO2 of 132, pCO2 of 43, pH 7.2. CT scan of the chest and abdomen were reviewed. Basilar atelectasis, left greater than right. Distended stomach with fluid, thickened colonic wall, splenic flexure and descending colon, mild small bowel distention. IMPRESSION: A 67-year-old with advanced chronic obstructive pulmonary disease with out of hospital cardiac arrest, now undergoing code ICE and on vasopressors for shock. She has had increased troponin up to 4.3. She has had mild elevation in her troponin up to 0.24. No dysrhythmias at this time noted. Has associated basilar atelectasis and infiltrate. Has evidence of left-sided colitis. Whether this is ischemic or infectious is yet to be determined. I am suspecting ischemia, most likely considering her down time. She, however, has not had any evidence of bloody diarrhea. RECOMMENDATIONS: We will treat for community acquired aspiration pneumonia and colitis. We will obtain cultures of blood, urine, sputum, stool along with C. difficile by PCR. We will make adjustments in her dosing for her renal failure. I have discussed the case with nursing and the patient's family at the bedside. [place] at this point in time is uncertain, given her other comorbidities and prolonged resuscitation. <ELECTRONICALLY SIGNED> By: Fortunato Quinn MD 01/06/18 1737 [id number] [id number] Fortunato Quinn MD /nt
--- NOTE | ~2018-01-04 | HC ---
[facility] [place] [address] CONSULTATION Name: EBONY GAMBOA Room #: 244-P [facility] IN M.R.#: [id number] Admission: 01/04/18 Attend Phys: Frida Vega MD Discharge: Date of : 48 Report #: [id number] THIS REPORT FOR: //name// CC: Frida Gaviria DATE OF SERVICE: 01/04/2018 PULMONARY CRITICAL CARE CONSULTATION REFERRING PROVIDER: Dr. Leslie Arriola in the Emergency Department and Dr. Vega, Hospitalist Group. REASON FOR CONSULTATION: Respiratory failure, status post arrest. HISTORY OF PRESENT ILLNESS: Our group was called to evaluate this patient in consultation while hospitalized in [facility]. The patient is unable to give any history and history is taken from discussion with healthcare providers. She is a 67-year-old woman with a past pulmonary history significant for COPD, apparently oxygen requiring and may recently have been on systemic steroids with a recent taper for shortness of breath. The patient had what sounds like relatively acute onset of shortness of breath earlier today, although had been feeling poorly. Apparently, had been slumped over, had her oxygen escalated and EMS was activated. Apparently, was in pulseless electrical activity at the time of their arrival. The patient received CPR and transit and subsequently received ongoing care in the Emergency Department. The patient was given systemic antibiotics for possible pneumonia or an acute abdominal process given an elevated lactate. Imaging studies in the Emergency Department included CT chest PE protocol, which revealed minimal basilar atelectasis or infiltrate and emphysema. Abdominal findings include findings suggestive of diffuse colitis. The patient also had significant voluminous diarrhea upon presentation to the ICU. Of note, also the patient with leukocytosis and hypotension, currently receiving fluid bolus and rapid fluid infusion and is on some norepinephrine. Elevated lactate also noted in the Emergency Department. ALLERGIES: None known. PAST MEDICAL HISTORY: 1. Severe COPD, oxygen requiring. Apparently, possibly steroid requiring frequently. 2. Hypertension. 3. Hyperlipidemia. 4. Ongoing tobacco abuse. OUTPATIENT MEDICATIONS: Include Lipitor, lisinopril, Coreg, torsemide, aspirin, budesonide, albuterol and Eliquis is listed, but apparently uncertain if she was [facility] [address] [place] [address] CONSULTATION Name: EBONY GAMBOA Room #: 244-P [facility] IN [facility]#: [id number] Admission: 01/04/18 Attend Phys: Frida Vega MD Discharge: Date of : 48 Report #: [id number]. SOCIAL HISTORY: Ongoing tobacco use. No significant alcohol consumption. Lives with family. FAMILY HISTORY: Unobtainable. REVIEW OF SYSTEMS: Otherwise, unobtainable due to the patient's status. PHYSICAL EXAMINATION: VITAL SIGNS: The patient is hypothermic, on hypothermia protocol. Pulse in the 80s; respiratory rate 24, set on the ventilator and blood pressure right now is 70/50. GENERAL: This is a somewhat cushingoid-appearing elderly woman, unresponsive, on mechanical ventilatory support. HEENT: Pupils are 3 mm, reactive to light. Endotracheal tube in place. NECK: Supple. I could not appreciate lymphadenopathy. No jugular venous distention. LUNGS: Clear with prolonged expiratory phase. No wheezes could be appreciated. Breath sounds are supported by the ventilator. CARDIOVASCULAR: Heart is regular. No murmurs noted. ABDOMEN: Soft. No masses noted. Diminished bowel sounds. EXTREMITIES: Reveal a left tibial intraosseous device, with cool distal extremities with minimal palpable pulses in the upper and lower extremities. Minimal cyanosis of the lower extremity digits noted. INTEGUMENT: Without rash. LABORATORY DATA: Chemistry profile: Sodium 138, potassium 5.1, chloride 105, bicarbonate 22, BUN 22, creatinine 1.7 and glucose is 226. Troponin 0.21. White blood cell count 17,000, hemoglobin 14, hematocrit 43 and platelet count 209,000. Most recent arterial blood gas on assist control, tidal volume 500, FiO2 50%, rate of 24, PEEP of 5 with lactate 3.65, down from previous, pH of 7.22, pCO2 of 44, pO2 of 133 and bicarbonate of 18. Peak pressures around 30. Cultures pending. D-dimer was markedly elevated. IMPRESSION: 1. Status post cardiopulmonary arrest, currently on hypothermia protocol. Etiology is uncertain. I would be concerned about abdominal catastrophe in addition to worsening respiratory failure. The patient is easy to ventilate, with significant wheezing on exam makes me less suspicious for an acute respiratory event associated with her chronic obstructive pulmonary disease and this is still a likely probability. 2. Findings suggestive of colitis with rapid clearing of her lactate. Uncertain if she has an ischemic event, but we would need to follow closely. Consider surgical evaluation. 3. Leukocytosis. [facility] [address] [place] [address] CONSULTATION Name: EBONY GAMBOA Room #: 244-P [facility] IN M.R.#: [id number] Admission: 01/04/18 Attend Phys: Frida Vega MD Discharge: Date of : 48 Report #: [id number] 4. Severe chronic obstructive pulmonary disease with acute exacerbation. 5. Probable chronic steroid use. 6. Ongoing tobacco abuse. SUGGESTIONS: 1. Hypothermia protocol. 2. Fluid bolus to maintain reasonable pressure. 3. Continue with vasopressors. We will not use dopamine unless the patient is bradycardic. Continue fall protocols. Add stress-dose steroids, which may improve blood pressure and if significant need for norepinephrine, we would consider adding vasopressin as second agent in this case. 4. Consider Renal consult. 5. Infectious Disease consultation. 6. Bronchodilators including nebulized steroids. 7. Ongoing ICU care. 8. Additional recommendations to follow. Discussed with nursing. Total critical care time at this point 45 minutes, not including any procedures. By: 0018 0052 Brian Ornelas MD /nt
--- NOTE | ~2018-01-04 | HC ---
[facility] [place] [address] CONSULTATION Name: EBONY GAMBOA Karol Room #: 244-P [facility] IN .R.#: [id number] Admission: 01/04/18 Attend Phys: Frida Vega MD Discharge: 01/07/18 Date of : 48 Report #: [id number] THIS REPORT FOR: //name// CC: Frida Fuentesparesh DATE OF SERVICE: 01/05/2018 HISTORY OF PRESENT ILLNESS: This is a 67-year-old female patient who was evaluated by me for hypoxic encephalopathy. The patient is comatose and is unable to provide any history. I talked to the patient's daughters. I talked to Dr. Carvajal, the hospitalist who was seeing the patient earlier this morning. The records in the computer was reviewed and it looks like this patient arrested at home and there was no CPR for several minutes and the patient was found to be pulseless and finally had pulse later on. The patient is on cooling protocol. The patient is also on propofol. As I understand from the nurses that it is just part of the cooling protocol and is not that the patient is having any movement. The patient's pressors are being tapered off. REVIEW OF SYSTEMS: A 14-point review of system was carried out partly from the records and partly from the patient's daughters. This patient had shortness of breath when it happened. She has a history of COPD as well as cardiomyopathy. The patient is presently unresponsive. This was a relevant 14-point review of systems. PAST MEDICAL HISTORY: Positive for what looks like cardiomyopathy. FAMILY HISTORY: Unremarkable. SOCIAL HISTORY: She does have a history of smoking, but does not drink any alcohol. PHYSICAL EXAMINATION: Limited. The patient is on propofol. She has no response of any kind. Her pupils are dilated and fixed, that has to be taken in conjunction with the fact that she was on pressors. She has no reflexes. She is intubated. She is moderately built individual who does not have any dysmorphic features of eyes, ears and face. Her blood pressure is low, but is stable. Last blood pressure was 120/77, pulse is 76, and temperature is 33 because she is on hypothermia protocol. I reviewed the patient's CT scan films. They are pretty impressive films with what looks like a pretty significant edema involving whole brain. 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 It does have fairly good correlation with bad prognosis in this patient. I discussed that with the [facility] [address] [place] [address] CONSULTATION Name: EBONY GAMBOA Room #: 244-P [facility]#: [id number] Admission: 01/04/18 Attend Phys: Frida Vega MD Discharge: 01/07/18 Date of : 48 Report #: [id number] family. Family is aware of it. They want to give her a few days and that is reasonable. They will start warming up this patient about 8:00. I will schedule an EEG tomorrow morning and if the EEG does not show any activity, then we will start the brain protocol, but if the EEG does show some activity, then we will talk to the family about such edema that is on the CT scan at such an early stage is usually a reliable bad prognostic sign. We will reevaluate this patient tomorrow. Thank you very much for this referral. <ELECTRONICALLY SIGNED> By: Oscar Mccall MD 01/13/18 1648 1738 [id number] Oscar Mccall MD /nt
--- NOTE | ~2018-01-04 | EKG ---
[address] [address] ELECTROCARDIOGRAM REPORT Name: EBONY GAMBOA Room #: 244- ADM IN M.R.#: [id number] Admission: 01/04/18 Attend Phys: Frida Vega MD Discharge: Date of : 48 Report #: [id number] THIS REPORT FOR: //name// [facility] Test Date: 2018-01-05 Test Time: 19:26:43 Pat Name: EBONY GAMBOA Department: Room: 244 Gender: F [employer] Operator: Laila MORLEY : 1950 Requested By: Isabella Ayala Order Number: [id number] MD: Lauri Webber Measurements Intervals [place] Rate: 68 P: 71 [place]: 155 QRS: 51 QRSD: 91 T: 54 QT: 546 QTc: 581 Interpretive Statements Sinus rhythm Prolonged QT interval Compared to ECG 01/04/2018 16:15:29 Prolonged QT interval now present Electronically Signed On 01-06-2018 17:41:59 CDT by Lauri Webber [email or web address] <ELECTRONICALLY SIGNED> By: Lauri Webber MD, [facility] 01/06/18 1741 25 Lauri Webber MD, [facility] /EPI
[2018-01-04 16:31] LABS: ABSOLUTE NEUTROPHILS 11.6 thou/uL (1.4-8.2); EOSINOPHILS 0.8 % (0.0-3.0); HEMATOCRIT 43.4 % (37.0-47.0); HEMOGLOBIN 13.5 gm/dL (12.0-15.0); LYMPHOCYTES 27.9 % (24.0-44.0); MCHC 31.1 g/dL (28.0-37.0); MCV 102.9 fL (80.0-100.0); MONOCYTES 3.2 % (1.0-8.0); PLATELET COUNT 209 thou/uL (150-400); POLYS 67.1 % (36.0-66.0); RBC 4.22 mil/uL (4.20-5.00); RDW 15.5 % (10.5-14.5); WBC 17.4 thou/uL (4.0-11.0)
[2018-01-04 16:40] LABS: ANION GAP 15 mmol/L (7-16); BUN 13 mg/dL (7-18); CALCIUM 9.7 mg/dL (8.5-10.1); CHLORIDE 107 mmol/L (98-107); CO2 19 mmol/L (21-32); CREATININE 1.4 mg/dL (0.6-1.0); GLUCOSE 240 mg/dL (74-106); POTASSIUM 5.5 mmol/L (3.5-5.1); SODIUM 141 mmol/L (136-145)
[2018-01-04 16:49] LABS: TROPONIN-I < 0.04 ng/mL (<0.06)
[2018-01-04] MEDS ORDERED: SYMBICORT160 MCG/4. INH (16:54)
[2018-01-04 16:57] LABS: BE(vivo) -14.5 mmol/L (-2 to +3); HCO3 16.7 mmol/L (22.0-26.0); PCO2 62.6 mmHg (35.0-45.0); pH 7.044 (7.360-7.450); sO2 99.5 % (92.0-98.0)
[2018-01-04 17:13] LABS: ALBUMIN 2.9 g/dL (3.4-5.0); DIRECT BILIRUBIN < 0.1 mg/dL (<0.1-0.3); SGOT 115 U/L (15-37); SGPT 118 U/L (30-65); TOTAL BILIRUBIN 0.2 mg/dL (<0.1-1.0); TOTAL PROTEIN 6.9 g/dL (6.4-8.2)
[2018-01-04 17:18] LABS: APTT 27.8 Seconds (24.5-32.8); PROTIME 10.7 Seconds (9.3-11.4)
[2018-01-04 18:26] LABS: D-DIMER > 35.20 ug/mLFEU (0.19-0.50)
[2018-01-04 20:51] LABS: BE(vivo) -9.9 mmol/L (-2 to +3); HCO3 17.5 mmol/L (22.0-26.0); PCO2 43.6 mmHg (35.0-45.0); PO2 132.9 mmHg (80.0-100.0); pH 7.221 (7.360-7.450); sO2 98.1 % (92.0-98.0)
[2018-01-04 20:57] LABS: CALCIUM 9.3 mg/dL (8.5-10.1); CREATININE 1.7 mg/dL (0.6-1.0); POTASSIUM 5.1 mmol/L (3.5-5.1); TROPONIN-I 0.21 ng/mL (<0.06)
[2018-01-05] VITALS (88 sets, daily range): BP systolic 63–176; BP diastolic 38–147
[2018-01-05 02:19] LABS: HEMATOCRIT 42.8 % (37.0-47.0); HEMOGLOBIN 13.7 gm/dL (12.0-15.0); MCH 31.6 pg (26.0-34.0); MCHC 32.1 g/dL (28.0-37.0); MCV 98.7 fL (80.0-100.0); PLATELET COUNT 219 thou/uL (150-400); RBC 4.33 mil/uL (4.20-5.00); RDW 14.9 % (10.5-14.5); WBC 15.8 thou/uL (4.0-11.0)
[2018-01-05 02:41] LABS: CALCIUM 8.6 mg/dL (8.5-10.1); CREATININE 1.6 mg/dL (0.6-1.0); MAGNESIUM 2.5 mg/dL (1.8-2.4); PHOSPHORUS 4.3 mg/dL (2.5-4.9); POTASSIUM 3.8 mmol/L (3.5-5.1); TROPONIN-I 0.24 ng/mL (<0.06)
[2018-01-05 04:36] LABS: ABSOLUTE NEUTROPHILS 14.4 thou/uL (1.4-8.2); ANISOCYTOSIS SLIGHT; METAMYELOCYTES 2 %
[2018-01-05 09:15] LABS: ABSOLUTE NEUTROPHILS 11.8 thou/uL (1.4-8.2); BASOPHILS 0.2 % (0.0-2.0); HEMATOCRIT 39.4 % (37.0-47.0); HEMOGLOBIN 12.8 gm/dL (12.0-15.0); LYMPHOCYTES 2.6 % (24.0-44.0); MCHC 32.6 g/dL (28.0-37.0); MCV 98.1 fL (80.0-100.0); MONOCYTES 1.8 % (1.0-8.0); PLATELET COUNT 175 thou/uL (150-400); POLYS 95.4 % (36.0-66.0); RBC 4.01 mil/uL (4.20-5.00); RDW 14.5 % (10.5-14.5); WBC 12.4 thou/uL (4.0-11.0)
[2018-01-05 09:38] LABS: CREATININE 1.6 mg/dL (0.6-1.0); MAGNESIUM 2.2 mg/dL (1.8-2.4); PHOSPHORUS 3.7 mg/dL (2.5-4.9); POTASSIUM 3.5 mmol/L (3.5-5.1); TROPONIN-I 0.12 ng/mL (<0.06)
[2018-01-05 14:47] LABS: URINE BILIRUBIN NEGATIVE (Negative); URINE BLOOD TRACE (Negative); URINE CLARITY CLEAR; URINE COLOR YELLOW; URINE GLUCOSE-RANDOM* 1+ (Negative); URINE KETONES NEGATIVE (Negative); URINE LEUKOCYTES NEGATIVE (Negative); URINE NITRITE NEGATIVE (Negative); URINE PROTEIN (DIPSTICK) TRACE (Negative); URINE SPECIFIC GRAVITY 1.025 (1.005-1.035); URINE UROBILINOGEN 0.2 E.U./dl (0.2-1.0)
[2018-01-05 15:01] LABS: BE(vivo) -12.7 mmol/L (-2 to +3); HCO3 13.4 mmol/L (22.0-26.0); PCO2 31.8 mmHg (35.0-45.0); PO2 87.7 mmHg (80.0-100.0); sO2 95.3 % (92.0-98.0)
[2018-01-05 15:52] LABS: HEMATOCRIT 33.8 % (37.0-47.0); HEMOGLOBIN 11.4 gm/dL (12.0-15.0); MCH 32.8 pg (26.0-34.0); MCHC 33.6 g/dL (28.0-37.0); MCV 97.6 fL (80.0-100.0); PLATELET COUNT 129 thou/uL (150-400); RBC 3.47 mil/uL (4.20-5.00); RDW 14.5 % (10.5-14.5); WBC 10.2 thou/uL (4.0-11.0)
[2018-01-05 16:11] LABS: CALCIUM 6.4 mg/dL (8.5-10.1); CREATININE 1.1 mg/dL (0.6-1.0); MAGNESIUM 1.7 mg/dL (1.8-2.4); PHOSPHORUS 3.3 mg/dL (2.5-4.9); POTASSIUM 3.3 mmol/L (3.5-5.1); TROPONIN-I 0.07 ng/mL (<0.06)
[2018-01-05 16:16] LABS: ABSOLUTE NEUTROPHILS 9.3 thou/uL (1.4-8.2); METAMYELOCYTES 1 %; NUCLEATED RBCS 1 /100WBC; PLATELET ESTIMATE NORMAL
[2018-01-05 16:52] LABS: pH 7.243 (7.360-7.450)
[2018-01-06] VITALS (58 sets, daily range): BP systolic 67–176; BP diastolic 36–90
[2018-01-06 04:44] LABS: CALCIUM 7.2 mg/dL (8.5-10.1); CREATININE 1.1 mg/dL (0.6-1.0); MAGNESIUM 1.8 mg/dL (1.8-2.4)
[2018-01-06 04:47] LABS: ABSOLUTE NEUTROPHILS 9.6 thou/uL (1.4-8.2); BASOPHILS 0.1 % (0.0-2.0); HEMATOCRIT 32.6 % (37.0-47.0); HEMOGLOBIN 10.8 gm/dL (12.0-15.0); LYMPHOCYTES 3.7 % (24.0-44.0); MCH 32.3 pg (26.0-34.0); MCHC 33.2 g/dL (28.0-37.0); MONOCYTES 3.4 % (1.0-8.0); PLATELET COUNT 128 thou/uL (150-400); POLYS 92.8 % (36.0-66.0); RBC 3.36 mil/uL (4.20-5.00); RDW 14.6 % (10.5-14.5); WBC 10.3 thou/uL (4.0-11.0)
[2018-01-06 05:17] LABS: HCO3 15.2 mmol/L (22.0-26.0); PCO2 35.3 mmHg (35.0-45.0); PO2 61.6 mmHg (80.0-100.0); sO2 88.2 % (92.0-98.0)
[2018-01-06 05:19] LABS: pH 7.253 (7.360-7.450)
[2018-01-06 05:55] LABS: ALBUMIN 1.9 g/dL (3.4-5.0); DIRECT BILIRUBIN 0.2 mg/dL (<0.1-0.3); TOTAL BILIRUBIN 0.3 mg/dL (<0.1-1.0); TOTAL PROTEIN 4.4 g/dL (6.4-8.2)
[2018-01-06 23:14] LABS: URINE BILIRUBIN NEGATIVE (Negative); URINE BLOOD NEGATIVE (Negative); URINE CLARITY CLEAR; URINE COLOR YELLOW; URINE GLUCOSE-RANDOM* TRACE (Negative); URINE KETONES TRACE (Negative); URINE LEUKOCYTES-REFLEX NEGATIVE (Negative); URINE NITRITE-REFLEX NEGATIVE (Negative); URINE PROTEIN (DIPSTICK) TRACE (Negative); URINE SPECIFIC GRAVITY 1.025 (1.005-1.035); URINE UROBILINOGEN 0.2 E.U./dl (0.2-1.0)
[2018-01-07] VITALS (68 sets, daily range): BP systolic 72–130; BP diastolic 47–81
[2018-01-07 05:46] LABS: ABSOLUTE NEUTROPHILS 10.4 thou/uL (1.4-8.2); BASOPHILS 0.2 % (0.0-2.0); HEMOGLOBIN 9.3 gm/dL (12.0-15.0); LYMPHOCYTES 3.4 % (24.0-44.0); MCH 31.6 pg (26.0-34.0); MCHC 33.1 g/dL (28.0-37.0); MCV 95.7 fL (80.0-100.0); MONOCYTES 2.9 % (1.0-8.0); PLATELET COUNT 111 thou/uL (150-400); POLYS 93.5 % (36.0-66.0); RBC 2.93 mil/uL (4.20-5.00); RDW 14.8 % (10.5-14.5); WBC 11.1 thou/uL (4.0-11.0)
[2018-01-07 05:54] LABS: APTT 28.4 Seconds (24.5-32.8); FIBRINOGEN 416.7 mg/dL (210-360); INR 1.1; PROTIME 11.4 Seconds (9.3-11.4)
[2018-01-07 05:59] LABS: ALBUMIN 1.6 g/dL (3.4-5.0); CALCIUM 7.3 mg/dL (8.5-10.1); CREATININE 1.5 mg/dL (0.6-1.0); MAGNESIUM 1.8 mg/dL (1.8-2.4); TOTAL BILIRUBIN 0.3 mg/dL (<0.1-1.0); TOTAL PROTEIN 4.5 g/dL (6.4-8.2)
[2018-01-07 06:02] LABS: AMYLASE 14 U/L (25-115); DIRECT BILIRUBIN 0.1 mg/dL (<0.1-0.3); GGTP 42 U/L (5-55); LIPASE 30 U/L (73-393); PHOSPHORUS 2.1 mg/dL (2.5-4.9); TROPONIN-I < 0.04 ng/mL (<0.06)
[2018-01-07 06:08] LABS: POTASSIUM 2.7 mmol/L (3.5-5.1)
[2018-01-07 07:34] LABS: LARGE PLATELETS OCCASIONAL
[2018-01-07 15:29] LABS: BE(vivo) -1.9 mmol/L (-2 to +3); HCO3 22.4 mmol/L (22.0-26.0); PCO2 36.2 mmHg (35.0-45.0); PO2 67.8 mmHg (80.0-100.0); pH 7.409 (7.360-7.450); sO2 93.8 % (92.0-98.0)
[2018-01-07 21:28] LABS: HCO3 26.9 mmol/L (22.0-26.0); pH 7.205 (7.360-7.450); sO2 99.4 % (92.0-98.0)
[2018-01-07 21:30] LABS: PCO2 69.5 mmHg (35.0-45.0)
[2018-01-07 22:03] LABS: MAGNESIUM 2.3 mg/dL (1.8-2.4); POTASSIUM 4.2 mmol/L (3.5-5.1)
== END 2018-01-07 21:57 | DRG 871 ==
LOC: ER 16:08 → ICU 16:58 → EROBS 16:58 → ICU 18:33
PROVIDERS: Emergency Medicine; Internal Medicine; Internal Medicine Pulmonary Disease; Nurse Practitioner Family; Psychiatry & Neurology Neuromuscular Medicine; Specialist
DX: A41.9 Sepsis, unspecified organism (principal); J18.9 Pneumonia, unspecified organism; R65.21 Severe sepsis with septic shock; J96.00 Acute respiratory failure, unspecified whether with hypoxia or hypercapnia; J44.1 Chronic obstructive pulmonary disease with (acute) exacerbation; I42.0 Dilated cardiomyopathy; G93.1 Anoxic brain damage, not elsewhere classified; E87.2 Acidosis; A04.72 Enterocolitis due to Clostridium difficile, not specified as recurrent; I10 Essential (primary) hypertension; E87.6 Hypokalemia; R73.9 Hyperglycemia, unspecified; E78.00 Pure hypercholesterolemia, unspecified; F17.210 Nicotine dependence, cigarettes, uncomplicated; E87.5 Hyperkalemia; I46.9 Cardiac arrest, cause unspecified; E66.09 Other obesity due to excess calories; Z68.37 Body mass index [BMI] 37.0-37.9, adult; Z79.82 Long term (current) use of aspirin; Z79.899 Other long term (current) drug therapy; Z82.49 Family history of ischemic heart disease and other diseases of the circulatory system; Z82.5 Family history of asthma and other chronic lower respiratory diseases
CPT/HCPCS: 10078; 27000; 85030